=== PATIENT | male | born 1995 | race African-American/Black ===

== ENCOUNTER 2018-06-07 10:31 | Emergency (ER) | payer MEDICAID ==
[~2018-06-07] VITALS: Ht 190.5 cm; Wt 84.0 kg
[2018-06-07] MEDS ORDERED: DEXAMETHASONE 10 MG/ML VIAL PO ONE (12:15)
[2018-06-07] MEDS ORDERED: DEXAMETHASONE 4MG TABLET PO ONE (12:30)
[2018-06-07 13:55] VITALS: BP 120/68
== END 2018-06-07 13:56 | disposition home or self-care (01) ==
LOC: ER 11:19
DX: J02.9 Acute pharyngitis, unspecified (principal); R53.1 Weakness
CPT/HCPCS: 71045; 87070; 87430; 99284; J8540; J1100

== ENCOUNTER 2018-06-20 13:57 | Emergency (ER) | payer MEDICAID ==
[~2018-06-20] VITALS: Ht 190.5 cm; Wt 91.0 kg
[2018-06-20] MEDS ORDERED: KETOROLAC 30MG/ML VIAL IV STA (14:59)
[2018-06-20] MEDS ORDERED: SODIUM CHLORIDE 0.9% 1,000 ML IV ONE (14:59)
[2018-06-20] MEDS ORDERED: DEXAMETHASONE 10 MG/ML VIAL IV ONE (15:00)
[2018-06-20] MEDS ORDERED: CLINDAMYCIN 900 MG in DEXTROSE 5% WATER 50 ML IV ONE (15:15)
[2018-06-20 15:28] LABS: HEMATOCRIT. 37.5 % (42.0-52.0); HEMOGLOBIN. 12.4 g/dL (14.0-18.0); MEAN CORPUSCULAR HEMOGLOBIN 29.3 pg (28.0-32.0); MEAN CORPUSCULAR VOLUME 88.4 fL (80.0-94.0); MEAN PLATELET VOLUME 11.6 fl (7.4-10.4); PLATELET 189 x1000/uL (130-400); RED BLOOD CELL COUNT 4.24 mill/uL (4.7-6.1); RED CELL DISTRIBUTION WIDTH 13.2 % (11.6-14.6)
[2018-06-20 15:29] LABS: CHLORIDE 104 mEq/L (98-107)
[2018-06-20 16:34] LABS: PLATELET ESTIMATE NORMAL
[2018-06-20] MEDS ORDERED: TETRACAINE/BENZOCAINE/BUTAMBEN 20 GM SPRAY MM NR (17:15)
[2018-06-20 18:11] VITALS: BP 120/66
== END 2018-06-20 18:42 | disposition home or self-care (01) ==
LOC: ER 13:57
DX: J36 Peritonsillar abscess (principal)
CPT/HCPCS: 36415; 42700; 80053; 85025; 87070; 87430; 96365; 96375; 99284; J1100; J1885; J3490; J7030; J7060; Z7610

== ENCOUNTER 2018-11-28 19:19 | Emergency (ER) | payer MEDICAID ==
[~2018-11-28] VITALS: Ht 190.5 cm; Wt 85.0 kg
[2018-11-28] MEDS ORDERED: SODIUM CHLORIDE 0.9% 1,000 ML IV ONE (21:04)
[2018-11-28 21:43] LABS: BASOPHILS % 0.4 % (0.0-2.0); EOSINOPHILS % 0.8 % (0.0-5.0); HEMATOCRIT. 42.3 % (42.0-52.0); LYMPHOCYTES % 18.1 % (20.0-50.0); MEAN CORPUSCULAR VOLUME 90.3 fL (80.0-94.0); MEAN PLATELET VOLUME 12.3 fl (7.4-10.4); NEUTROPHILS % 71.7 % (40.0-76.0); PLATELET 128 x1000/uL (130-400); RED BLOOD CELL COUNT 4.68 mill/uL (4.7-6.1); RED CELL DISTRIBUTION WIDTH 13.7 % (11.6-14.6)
[2018-11-28 21:45] LABS: CHLORIDE 110 mEq/L (98-107)
[2018-11-28 22:53] LABS: KETONES URINE TRACE (NEGATIVE); LEUKOCYTE ESTERASE URINE 2+ (NEGATIVE); NITRITE URINE NEGATIVE (NEGATIVE); OCCULT BLOOD URINE NEGATIVE (NEGATIVE); PROTEIN URINE TRACE (NEGATIVE); SPECIFIC GRAVITY URINE 1.036 (1.005-1.030); UROBILINOGEN URINE 0.2 E.U./dL (0.2-1.0)
[2018-11-28 22:56] LABS: CLARITY URINE HAZY (CLEAR); COLOR URINE YELLOW (YELLOW)
[2018-11-29] MEDS ORDERED: CEFTRIAXONE SODIUM 250 MG/VIAL IM ONE (00:30)
[2018-11-29] MEDS ORDERED: AZITHROMYCIN 500 MG TABLET PO ONE (00:30)
[2018-11-29 00:53] VITALS: BP 120/75
== END 2018-11-29 00:54 | disposition home or self-care (01) ==
LOC: ER 23:34
DX: R42 Dizziness and giddiness (principal); R82.81 Pyuria
CPT/HCPCS: 36415; 71045; 73560; 80053; 81003; 83735; 84484; 85025; 87086; 93005; 96372; 99284; J0696; J7030